=== PATIENT | male | born 1995 | race Caucasian/White ===

== ENCOUNTER 2024-01-03 06:05 | Day surgery (SDC) | payer OTHER, SELFPAY ==
[2024-01-03] VITALS (7 sets, daily range): BP systolic 105–116; BP diastolic 53–81; BMI 24.2
--- NOTE | 2024-01-03 06:55 | HP.FOC2 ---
Focused History & Physical
Chief Complaint
HPI:
Chief Complaint: Subcutaneous abdominal wall lipoma
HPI / Indication for Planned Procedure: 28-year-old male with a few year history of having noted a palpable lump/swelling just below the breastbone in the upper central abdomen slightly towards the right sinus. Swelling is always present. It is
slightly increased in size over the years but is not variable on a day-to-day basis. He has no awareness of the pain present and occasional discomfort.
Relevant Past Medical History: Other (Chronic sinusitis, ADHD, anxiety)
Relevant Social History: Negative
Relevant Family History: Negative
Relevant Past Surgical History: Negative
Review of Systems
Review of Pertinent Systems: All Systems Negative
Medication
See Medication form for detailed medications: Yes
Medication List (including Herbals & OTC):
cetirizine 10 mg tablet (Zyrtec) 10 mg PO DAILY PRN allergies 01/01/24
guaifenesin 600 mg tablet, extended release 12 hr (Mucinex) 600 mg PO Q12H PRN congestion 01/01/24
ibuprofen 200 mg tablet (Advil) 400 mg PO Q6H PRN Pain 01/01/24
fluticasone propionate 50 mcg/actuation nasal spray,suspension 2 spray intranasal DAILY PRN allergies 01/03/24
Medications Reviewed: Yes
Allergies and Reactions
Patient has Allergies: No
Noted Allergies and Reactions:
Allergy/AdvReac Type Severity Reaction Status Date / Time
No Known Allergies Allergy Verified 01/03/24 06:22
Pertinent Physical Exam
All Other Systems: Negative
Head/Neck: Normal
Lungs: Normal
Heart: Normal
Abdomen: Other (Soft, mobile subcutaneous lipomatous mass in the epigastrium just to the right of midline 3 to 4 cm)
Extremities: Normal
Neurological: Normal
Diagnosis / Assessment
28-year-old male presenting for scheduled operative excision suspected subcutaneous abdominal wall lipoma
Plan / Procedure
Excision of subcutaneous lipoma abdomen
Anesthesia/Sedation to be done by Anesthesia Provider: Yes
--- NOTE | 2024-01-03 06:57 | W.SUR.PREOP ---
Pre-Operative Surgical Note
-
I have examined this patient prior to the performance of the scheduled procedure.
The patient's condition is unchanged from the time of the current History and
Physical and the patient is able to undergo the scheduled procedure.
[2024-01-03] MEDS: NORMOSOL-R/PLASMALYTE-A 1000 IV (07:02)
--- NOTE | 2024-01-03 07:56 | W.IMMPOSTOP ---
Addendum entered and electronically signed by Dipak March MD 01/03/24 08:01:
#[id number]
Original Note:
Surgical Immed Post Op Note
-
Primary Surgeon: Joaquim
Assisting Surgeon: None
Pre-op Diagnosis: Subcutaneous lipoma abdomen
Post-op Diagnosis: Subcutaneous lipoma abdomen, 4 cm
Procedure Performed: Excision subcutaneous lipoma abdomen
Anesthesia Type: MAC +1% lido with epi
Specimen / Cultures: Lipoma
Estimated Blood Loss: 2 mL
Complications: None immediate
Operative Findings: Well encapsulated subcutaneous lipoma excised in its entirety.
Mother updated postoperatively via phone call
== END 2024-01-03 09:20 | disposition home or self-care (01) ==
LOC: SDS 06:05
PROVIDERS: ATTENDING PHYSICIAN Surgery
DX: D17.1 Benign lipomatous neoplasm of skin and subcutaneous tissue of trunk (principal)
CPT/HCPCS: 11404; 88304

== ENCOUNTER → 2024-03-13 17:55 | Outpatient (REF) | payer OTHER, SELFPAY | LOC: RAD 17:55 | PROVIDERS: ATTENDING PHYSICIAN Nurse Practitioner Family | DX: S86.891A Other injury of other muscle(s) and tendon(s) at lower leg level, right leg, initial encounter (principal) | CPT/HCPCS: 73590 ==

== ENCOUNTER 2025-03-31 19:02 | Emergency (ER) | payer OTHER, SELFPAY ==
[2025-03-31 19:04] VITALS: BP 156/109
[2025-03-31 20:01] LABS: Hematocrit 41.5 % (39.0-52.0); Hemoglobin 15.1 g/dL (13.0-18.0); Mean Corp Hgb Conc. 36.4 g/dL (33.0-37.0); Mean Corpuscular Volume 85.0 fL (80.0-94.0); Nucleated Red Blood Cells % 0 % (-); Platelet Count 278 10^3/uL (130-400); Red Cell Dist. Width 11.6 % (11.5-14.5)
[2025-03-31 20:23] LABS: ALT (SGPT) 24 U/L (0-50); AST (SGOT) 33 U/L (17-59); Acetaminophen < 10 ug/ml (10-30); Albumin 4.9 g/dl (3.5-5.0); Alkaline Phosphatase 40 U/L (38-126); Blood Urea Nitrogen 13 mg/dl (9-20); Calcium 10.1 mg/dl (8.4-10.2); Carbon Dioxide 27 mmol/L (22-30); Chloride 94 mmol/L (98-107); Glucose 87 mg/dl (70-99); Potassium 3.6 mmol/L (3.5-5.1); Salicylate < 1.0 mg/dl (2.0-20.0); Sodium 129 mmol/L (135-145); Total Protein 7.5 g/dl (6.3-8.2); eGFR > 60.00
--- NOTE | 2025-03-31 22:26 | ED.GENMED ---
History of Present Illness
General
Chief Complaint: Overdose Intentional
Source: patient
Time Seen by Provider: 03/31/25 21:35
History of Present Illness
History of Present Illness:
30-year-old male with past medical history of ADHD, anxiety and depression presenting to the ER for evaluation after he took 80 mg of Adderall around 8 AM and another 80 mg just after noon stating he wanted to know how the medications would make him
feel. He was started on this medication about 3 months ago by his primary care provider, patient was concerned that he could develop a tolerance to the 20 mg daily that he is prescribed so decided to take the additional dosages. This evening
patient started develop pain to the left flank area and was concerned for possible kidney related issue which is why he came to the ER, at time of my exam patient reports he is asymptomatic. Patient denies any suicidal ideation, homicidal ideation,
auditory or visual loose nations, no other concomitant drug or alcohol use.
Past History
Past History
ED Past Medical History: Psychiatric
ED Past Surgical History: None
Social History
Tobacco: Non-smoker
Alcohol: None
Drug: None
Personal: Single
Living: with family
Employment: Student
Review of Systems
Review of Systems
All Other Systems: ROS reviewed and negative except as documented in HPI and ROS
Phy Exam
Physical Exam
Physical Exam:
GENERAL: Alert , in no apparent distress
HEAD: Normocephalic atraumatic
EYE: conjunctiva clear
NECK: Supple
ENT: o/p clr, mmm.
CARDIAC: Regular rate and rhythm
LUNGS: Clear breath sounds bilaterally, no acute respiratory distress, no wheezes/rales/rhonchi
NEUROLOGICAL: Alert and oriented
SKIN: Warm and dry, skin intact.
MUSCULOSKELETAL: well perfused.
PSYCH: Normal and appropriate interaction.
Scores
Heart Failure Risk
Heart Failure Risk Score: Not Applicable
Heart Score for Chest Pain Patients
STEMI patient?: Not applicable
Withdrawal Assessment of Alcohol
Withdrawal Assessment Completed?: Not applicable
Course
Orders/Labs/Results
Orders:
Orders
03/31/25 19:10
Electrocardiogram (*1) Urgent
Reason for Study: Other
Other Reason for Exam: Potential overdose
EKG- Treatment ONCE
03/31/25 19:39
Acetaminophen Urgent
Alcohol Urgent
Complete Blood Count/With Diff Urgent
Comprehensive Metabolic Panel Urgent
Salicylate Urgent
03/31/25 23:21
Fentanyl, Urine Urgent
Urinalysis Reflex To Culture Urgent
Date Specimen was Collected: 03/31/25
Time Specimen was Collected: 23:19
Urine Drug Abuse Screen Urgent
Date Specimen was Collected: 03/31/25
Time Specimen was Collected: 23:19
Abnormal Lab Results
03/31/25 03/31/25
19:39 23:21
Absolute Monos (auto) 1.0 H 10^3/uL
(0.1-0.6)
Monocytes % 11.0 H %
(1.7-9.3)
Sodium 129 L mmol/L
(135-145)
Chloride 94 L mmol/L
(98-107)
Salicylates < 1.0 L mg/dl
(2.0-20.0)
Acetaminophen < 10 L ug/ml
(10-30)
Ur Amphetamines Screen Positive H
(Negative)
03/31/25 19:39
03/31/25 19:39
Vital Signs
Initial and Last Documented VS:
Initial Vital Signs
Temp Pulse Resp BP Pulse Ox
97.9 F 89 18 156/109 98
03/31/25 19:04 03/31/25 19:04 03/31/25 19:04 03/31/25 19:04 03/31/25 19:04
Last Documented Vital Signs
Temp Pulse Resp BP Pulse Ox
97.9 F 95 16 124/85 100
03/31/25 19:04 03/31/25 23:19 03/31/25 23:19 03/31/25 23:19 03/31/25 23:19
MDM/Problems Addressed
Differential Diagnosis Includes:
Medication misuse
Patient denies SI
TANYA
Medication withdrawal
MDM/Problems Addressed:
30-year-old male presenting to the ER for evaluation following him taking too much Adderall today. Initially noted pain in his left flank, pain is now currently resolved. Hemodynamically stable, well-appearing and in no acute distress. Denies any
suicidal ideation. Declines crisis evaluation which I do think is reasonable given no suicidal ideation. Additional labs and urine ordered with anticipation that patient will be stable for discharge home, encouraged him to contact primary care
provider if he feels medication is not working for him.
*Pulse Oximetry
SaO2: 98
Oxygen Mode of Delivery: Room air
Patient hypoxic: no
*Critical Care Note
Total Time (30-74mins, 75-104mins- exclusive of procedures): Not Applicable
Patient Management
Escalation/DeEscalation of care consider admission/obs:
Patient's workup is unremarkable, continues to decline SI. Will follow-up with primary care provider. Aware of return precautions to the ER.
ED Attending Note
-
Portions of this chart may have been created with voice recognition software.� Occasional wrong word or��sound alike� substitutions may have occurred due to the inherent limitations of voice recognition software.
Discharge Plan
Departure
Patient Disposition: Home (Routine Discharge)
Date of Disposition: 03/31/25
Time of Disposition: 23:50
Patient with high blood pressure during this ER visit?: Yes
Discharge Problem:
Misuse of medication
Prescriptions:
No Action
cetirizine [Zyrtec] 10 mg Tablet
10 mg PO DAILY PRN (Reason: allergies)
ibuprofen [Advil] 200 mg Tablet
400 mg PO Q6H PRN (Reason: Pain)
guaifenesin [Mucinex] 600 mg Tablet Extended Release 12hr
600 mg PO Q12H PRN (Reason: congestion)
fluticasone propionate 50 mcg/actuation [place],Suspension
2 spray INTRANASAL DAILY PRN (Reason: allergies)
acetaminophen [Tylenol Extra Strength] 500 mg tablet
1,000 mg PO Q6HPRN PRN (Reason: mild pain) Qty: 1 0RF
polyethylene glycol 3350 [Miralax] 17 gram/dose powder
4 g PO DAILY PRN (Reason: Constipation) Qty: 119 0RF
Rx Instructions:
start a laxative such as MIRALAX on day 2 after surgery if no bowel movement yet as long as no nausea/vomiting and passing gas
oxycodone 5 mg tablet
5 mg PO Q4HPRN PRN (Reason: breakthrough/severe pain) Qty: 5 0RF
Referrals:
Epi Case MD [Family Provider, Family Practice]
Interventions
Interventions:
*Risk Screen - Suicide Last Done: 03/31/25 19:04
*General Assessment Last Done: 03/31/25 23:20
*Neglect/Abuse Screening Last Done: 03/31/25 23:20
*ED COVID-19 Vaccine History Last Done: 03/31/25 23:20
*ED Influenza Vaccine History Last Done: 03/31/25 19:04
[facility] Fall Risk Assessment Tool Last Done: 03/31/25 23:27
*Nursing Disposition Last Done: 03/31/25 23:54
ED- Cardiac Assessment Last Done: 03/31/25 23:27
ED- Neurological Assessment Last Done: 03/31/25 23:27
ED-Psychological Assessment Last Done: 03/31/25 23:27
ED- Pulmonary Assessment Last Done: 03/31/25 23:27
Discharge Date and Time
Discharge Date/Time: 03/31/25 23:55
Print Language: [place]
[2025-03-31 23:19] VITALS: BP 124/85
[2025-03-31 23:43] LABS: Urine Character Clear (Clear)
== END 2025-03-31 23:55 | disposition home or self-care (01) ==
LOC: EMR 19:02
PROVIDERS: Physician Assistant Medical; EMERGENCY PHYSICIAN Student in an Organized Health Care Education/Training Program; FAMILY PHYSICIAN Family Medicine
DX: F15.90 Other stimulant use, unspecified, uncomplicated (principal); R03.0 Elevated blood-pressure reading, without diagnosis of hypertension; F90.9 Attention-deficit hyperactivity disorder, unspecified type; F41.9 Anxiety disorder, unspecified; F32.A Depression, unspecified
CPT/HCPCS: 99284; 80053; 80143; 80179; 80306; 80307; 81003; 82077; 85025; 93005